=== PATIENT | male | born 1925 | race Caucasian/White ===

== ENCOUNTER 2016-09-06 22:53 | Inpatient (IN) | payer OTHER ==
--- NOTE | 2016-09-06 22:58 | PDOC ---
History of Present Illness - General History Source: EMS, Family Exam Limitations: Clinical Condition - History of Present Illness Initial Comments: 09/06/16 23:22 The patient is an 89 year old male BIBA, with a significant past medical history of hypertension, hyperlipidemia, and CVA(23 years ago), who presents to the emergency department s/p stroke earlier this afternoon. As per patients family members, the patient was last seen awake, alert, and able to ambulate normally at approximately 17:00. EMS reports the patient has a recent history of a left jugular clot removal on Friday (2 days ago), and was discharged yesterday. Family members report the patient was in the bathroom and began to feel a headache and dizziness at around 17:00. The family denies any head trauma. EMS reports the patient has experienced right sided facial drooping and generalized weakness to the lower extremities since the episode. EMS states the patients right extremities appear to be weaker than his left extremities. EMS states during the patients previous CVA 23 years ago, he did not experience any facial drooping. Family members deny the patient complained of any chest pain, palpitations, shortness of breath, or diaphoresis. The patient s history is limited due to current clinical condition. Allergies: None reported. Past Surgical History: Left Jugular clot removal (09/04/16) Social History: Non-smoker. No ETOH or drug use reported. PCP: Dr. Musa Lewis <Jez Jaramillo - Last Filed: 09/07/16 02:52> <Janet Jimenez - Last Filed: 09/08/16 06:25> - General Stated Complaint: POSSIBLE STROKE Time Seen by Provider: 09/06/16 22:57 Past History <Jez Jaramillo - Last Filed: 09/07/16 02:52> - Past Medical History HTN: Yes (patient on meds but does not know the names) Hypercholesterolemia: Yes (patient on meds but does not know the name) - Psycho/Social/Smoking Cessation Hx Suicidal Ideation: No Smoking Status: No Smoking History: Never smoked Number of Cigarettes Smoked Daily: 0 Hx Alcohol Use: No Drug/Substance Use Hx: No <Janet Jimenez - Last Filed: 09/08/16 06:25> - Past Medical History Allergies/Adverse Reactions: Allergies Allergy/AdvReac Type Severity Reaction Status Date / Time No Known Allergies Allergy Verified 09/06/16 23:06 Home Medications: Ambulatory Orders Naproxen [Naprosyn] 375 mg PO BID PRN #14 tablet 08/24/12 Unobtainable Home Med List 0 dose .ROUTE UTDICT 08/24/12 Aspirin [ASA -] 81 mg PO DAILY 09/07/16 Atorvastatin Calcium [Lipitor] 10 mg PO 09/07/16 Benazepril/Hydrochlorothiazide [Benazepril-Hctz 20-12.5 mg Tab] 1 each PO Metformin HCl [Glucophage -] 500 mg PO BID 09/07/16 Review of Systems - Review of Systems Able to Perform ROS?: Yes Comments:: 09/06/16 23:22 GENERAL/CONSTITUTIONAL: +Bilateral weakness at the extremities. No fever or chills. HEAD, EYES, EARS, NOSE AND THROAT: +Right sided facial droop. No ear pain or discharge. No sore throat. CARDIOVASCULAR: No chest pain or shortness of breath. RESPIRATORY: No cough, wheezing, or hemoptysis. GASTROINTESTINAL: No nausea, vomiting, diarrhea or constipation. GENITOURINARY: No dysuria, frequency, or change in urination. MUSCULOSKELETAL: No joint or muscle swelling or pain. No neck or back pain. SKIN: No rash NEUROLOGIC: +Headache, +dizziness, +change in strength to the lower extremities. No vertigo. ENDOCRINE: No increased thirst. No abnormal weight change. HEMATOLOGIC/LYMPHATIC: +Blood clot at left jugular vein(removed 09/04/16). No anemia, easy bleeding. ALLERGIC/IMMUNOLOGIC: No hives or skin allergy. <Jez Jaramillo - Last Filed: 09/07/16 02:52> *Physical Exam - Vital Signs Last Vital Signs Temp Pulse Resp BP Pulse Ox 98.3 F 96 H 18 194/114 97 09/06/16 22:55 09/06/16 22:55 09/06/16 22:55 09/06/16 22:55 09/06/16 22:55 - Physical Exam Comments: 09/06/16 23:24 GENERAL: Awake, alert, and fully oriented, in no acute distress. Afebrile. HEAD: No signs of trauma EYES: PERRLA, EOMI, sclera anicteric, conjunctiva clear ENT: Auricles normal inspection, hearing grossly normal, nares patent, oropharynx clear without exudates. Moist mucosa NECK: Normal ROM, supple, no lymphadenopathy, JVD, or masses LUNGS: Breath sounds equal, clear to auscultation bilaterally. No wheezes, and no crackles HEART: Regular rate and rhythm, normal S1 and S2, no murmurs, rubs or gallops ABDOMEN: Soft, nontender, normoactive bowel sounds. No guarding, no rebound. No masses EXTREMITIES: Normal range of motion, no edema. No clubbing or cyanosis. No cords, erythema, or tenderness NEUROLOGICAL: Alert, awake, appropriate. Cranial nerves 2-12 intact. Good strength in arms bilaterally. Slightly weak on the right side. Unable to lift legs bilaterally. Toes are down-going bilaterally. Reflexes are equal bilaterally and throughout. Babinski's on left was upcoming. SKIN: Warm, Dry, normal turgor, no rashes noted. Carotid artery surgery site( scar). <Jez Jaramillo - Last Filed: 09/07/16 02:52> Heart Score/ECG Review - ECG Impressions Comment:: 09/07/16 02:52 Vent. Rate: 89 bpm IMPRESSION: Normal sinus rhythm with 1st degree AV block. <Jez Jaramillo - Last Filed: 09/07/16 02:52> ED Treatment Course - LABORATORY CBC & Chemistry Diagram: 09/07/16 01:15 09/07/16 01:15 - ADDITIONAL ORDERS Additional order review: Laboratory Results 09/06/16 22:59 POC Glucometer [id number] 09/06/16 22:59 POC Glucometer [id number] - RADIOLOGY Radiograph Interpretation: 09/06/16 23:42 EXAM: Head CT INTERPRETED BY: Dr. Smart REVIEWED BY: Dr. Jimenez IMPRESSION: Acute nonhemorrhagic left cerebral infarct as discussed. - Medications Given in the ED: ED Medications Discontinued Medications Generic Name Dose Route Start Last Admin Trade Name Freq PRN Reason Stop Dose Admin Labetalol HCl 10 mg 09/06/16 23:01 09/06/16 23:21 Normodyne Injection - IVPUSH 09/06/16 23:02 10 mg ONCE ONE Administration <Jez Jaramillo - Last Filed: 09/07/16 02:52> - LABORATORY CBC & Chemistry Diagram: 09/07/16 01:15 09/07/16 01:15 <Janet Jimenez - Last Filed: 09/08/16 06:25> Medical Decision Making - Medical Decision Making 09/08/16 06:23 Pt comes in with right sided body weakness that began around 5PM. He developed a bad headache, then the headache resolved and he was left with left side wekness and facial droop. He had extraction of clot from his carotid 2 days back at [facility]. Now with CVA. Pt will be admitted to hospitalist. BP controlled. Pt hydrated and he is resting. <Janet Jimenez - Last Filed: 09/08/16 06:25> *DC/Admit/Observation/Transfer - Attestations Scribe Attestion: 09/06/16 23:24 Documentation prepared by Jez Jaramillo, acting as certified ophthalmic medical technician for Janet Jimenez MD. <Jez Jaramillo - Last Filed: 09/07/16 02:52> - Discharge Dispostion Admit: Yes <Janet Jimenez - Last Filed: 09/08/16 06:25> Diagnosis at time of Disposition: Cerebrovascular accident (CVA) - Discharge Dispostion Disposition: TRANSFER ACUTE CARE/OTHER HOSP Condition at time of disposition: Guarded - Referrals
[2016-09-06] MEDS ORDERED: LABETALOL HCL 5 MG/1 ML (100MG/20 ML VIAL) IVPUSH ONE (23:01)
--- NOTE | 2016-09-06 23:07 | PDOC ---
NIH Stroke Scale - Last Known Well Date/Time & Onset Date Last Known Well: 09/06/16 Time Last Known Well: 17:00 - Initial Evaluation Level of consciousness: Not alert, but arousable with minimal stimulation Ask patient the month and their age: Both incorrect Ask patient to open & close eyes; make fist and let go: Obeys both correctly Best gaze (horizontal eye movement): Normal Visual field testing: No visual field loss Facial paresis (Show teeth/raise eyebrows/close eyes tight): Minor paralysis ( flattened nasolabial fold, asymmetry on smiling) Motor Function: Left Arm: Normal Motor Function: Right Arm: Normal (extends arm 90 (or 45) degrees for 10 seconds without drift Motor Function: Left Leg: No effort against gravity Motor Function: Right Leg: No effort against gravity Limb Ataxia: No ataxia Sensory(Use pinprick test arms,legs,trunk,face/side to side): Normal Best language (Describe picture, name items, read sentences): Mild to moderate aphasia Dysarthria (read several words): Mild to moderate slurring of words Extinction and Inattention: No abnormality - Total Score NIH Stroke Scale Score: 12
[2016-09-06] MEDS ORDERED: LABETALOL HCL 5 MG/1 ML (200MG/40ML VIAL) IVPB ONE (23:11)
[2016-09-06] MEDS ORDERED: SODIUM CHLORIDE 0.9% 500 ML INFUS.BAG IV ONE (23:30)
[2016-09-07] MEDS ORDERED: ASPIRIN 81 MG CHEWABLE TABLETS PO ONE (00:02)
[2016-09-07] MEDS ORDERED: ASPIRIN 81 MG CHEWABLE TABLETS ONE (00:28)
[2016-09-07 01:33] LABS: BASOPHIL 0.7 % (0-2.0); EOSINOPHIL 0.1 % (0-4.5); MCH 30.4 pg (25.7-33.7); MCHC 33.5 g/dl (32.0-35.9); MEAN CELL VOLUME 90.7 fl (80-96); NEUTROPHILS 85.5 % (42.8-82.8); PLATELET COUNT 206 K/MM3 (134-434); RDW 13.1 % (11.9-15.9); WHITE BLOOD COUNT 15.7 K/mm3 (4.0-10.0)
[2016-09-07 01:56] LABS: INR 1.05 (0.82-1.09); PROTHROMBIN TIME (PATIENT) 11.6 SEC (9.98-11.88)
[2016-09-07 01:59] LABS: ALBUMIN 3.9 g/dl (3.4-5.0); ANION GAP 11 (8-16); BILIRUBIN,TOTAL 0.6 mg/dL (0.2-1.0); CALCIUM 9.1 mg/dL (8.5-10.1); CO2 28 mmol/L (21-32); CREATININE 1.1 mg/dL (0.7-1.3); GLUCOSE,RANDOM 264 mg/dL (74-106); SGOT/AST 45 U/L (15-37); SGPT/ALT 40 U/L (12-78)
[2016-09-07 02:00] LABS: ALK PHOS 120 U/L (45-117)
--- NOTE | 2016-09-07 02:45 | PN ---
<Tanya Ribeiro - Last Filed: 09/07/16 04:56> Teaching Attending Note ATTENDING PHYSICIAN STATEMENT I saw and evaluated the patient. I reviewed the resident's note and discussed the case with the resident. I agree with the resident's findings and plan as documented. SUBJECTIVE: 89 year old male who presents with right sided facial droop, generalized weakness and lower extremity weakness since this afternoon. Patient was last seen awake, alert and ambulating at 17:00. Patient has a recent history of a left jugular clot removal on Friday (2 days ago), and was discharged yesterday. As per daughter the patient started to experience left sided facial pain followed by a headache and dizziness. The family denies any head trauma. Family members deny the patient complained of any chest pain, palpitations, shortness of breath, or diaphoresis. The patients history is limited due to current clinical condition. PMH: hypertension, hyperlipidemia, and CVA(23 years ago) with mild weakness in the right limb, diabetes, dementia Past Surgical History: Left Jugular clot removal (09/04/16) FH: non contributory Social History: Non-smoker. No ETOH or drug use reported. OBJECTIVE: VS: Last Vital Signs Temp Pulse Resp BP Pulse Ox 98.5 F 85 20 181/101 97 09/07/16 02:17 09/07/16 02:17 09/07/16 02:17 09/07/16 02:17 09/07/16 02:17 GENERAL: drowsy but arrousable, disoriented HEAD: Normal with no signs of trauma. EYES: Pupils equal, round and reactive to light, extraocular movements can not checked( doesn't follow commands), sclera anicteric, conjunctiva clear. EARS, NOSE, THROAT: nares patent, oropharynx clear without exudates. Moist mucous dry. NECK: Normal range of motion, supple without lymphadenopathy, JVD, or masses. LUNGS: Breath sounds equal,coarse breathing b/l . No wheezes, and no crackles. No accessory muscle use. HEART: Regular rate and rhythm, normal S1 and S2, no murmurs, rubs or gallops, peripheral pulses normal and equal bilaterally. ABDOMEN: Soft, nontender, not distended, normoactive bowel sounds, no guarding, no rebound, no masses. UPPER EXTREMITIES: 2+ pulses, warm, well-perfused. No cyanosis. LOWER EXTREMITIES: 2+ pulses, warm, well-perfused.. No peripheral edema. NEUROLOGICAL: Cranial nerves II-XII can not checked patient doesn't follow command. power LUE 4/5, dobby looms pegger 5/5. RUE poer 3/5 dobby looms pegger 2/5. Power Left leg 4/5 right LEG 3/5 . Reflexes are equal bilaterally and throughout. Patient unable to tell fine touch in both upper and lower extremity. SKIN: Warm, dry, normal turgor Labs: CBCD WBC 15.7 K/mm3 (4.0-10.0) H 09/07/16 01:15 RBC 4.72 M/mm3 (4.00-5.60) 09/07/16 01:15 Hgb 14.3 GM/dL (11.7-16.9) 09/07/16 01:15 Hct 42.8 % (35.4-49) 09/07/16 01:15 MCV 90.7 fl (80-96) 09/07/16 01:15 MCHC 33.5 g/dl (32.0-35.9) 09/07/16 01:15 RDW 13.1 % (11.9-15.9) 09/07/16 01:15 Plt Count 206 K/MM3 (134-434) 09/07/16 01:15 MPV 10.0 fl (7.5-11.1) 09/07/16 01:15 CMP Sodium 132 mmol/L (136-145) L 09/07/16 01:15 Potassium 5.4 mmol/L (3.5-5.1) H 09/07/16 01:15 Chloride 93 mmol/L (98-107) L 09/07/16 01:15 Carbon Dioxide 28 mmol/L (21-32) 09/07/16 01:15 Anion Gap 11 (8-16) 09/07/16 01:15 BUN 25 mg/dL (7-18) H 09/07/16 01:15 Creatinine 1.1 mg/dL (0.7-1.3) 09/07/16 01:15 Creat Clearance w eGFR > 60 (>60) 09/07/16 01:15 Calcium 9.1 mg/dL (8.5-10.1) 09/07/16 01:15 Total Bilirubin 0.6 mg/dL (0.2-1.0) 09/07/16 01:15 AST 45 U/L (15-37) H 09/07/16 01:15 ALT 40 U/L (12-78) 09/07/16 01:15 Alkaline Phosphatase 120 U/L (45-117) H 09/07/16 01:15 Total Protein 8.0 g/dl (6.4-8.2) 09/07/16 01:15 Albumin 3.9 g/dl (3.4-5.0) 09/07/16 01:15 ASSESSMENT AND PLAN: CVA r/o TIA s/p carotid endarterectomy -Leukocytosis most likely stress induced -No signs of infection at surgical site -Plavix/Aspirin -MRI/MRA of neck and brain -Statin therapy -Permissive HTN -Neuro consult in am -PT consult -Speech and swallow <Sarai Handy - Last Filed: 09/07/16 20:29> Teaching Attending Note Name of Resident: Jossue Jimenes
--- NOTE | 2016-09-07 03:19 | HP ---
CHIEF COMPLAINT: cva PCP: HISTORY OF PRESENT ILLNESS: History obtained from daughter. Patient is an 89 year old male with a significant past medical history of hypertension, hyperlipidemia, and CVA(23 years ago, had mild weakness in right lower limb from previous stroke), Dementia.who presents to the emergency with a complaint of stroke. As per patients family members, the patient was last seen awake, alert, and able to ambulate normally at approximately 17:00. Patient had endartrectomy done 2 days ago and was discharged yesterday. Daughter states that patient was complaoing of pain in neck since morning but in evening he started complaining headache and weakness in b/l lower limb and right upper limb. Daughter deny the patient complained of any chest pain, palpitations, shortness of breath, or diaphoresis. Denies irregular body movement, urine incontinence, stool incontinence. Allergies: None reported. Past Surgical History: Left Jugular clot removal (09/04/16) Social History: Non-smoker. No ETOH or drug use reported. PCP: Dr. Musa Lewis ER course was notable for: (1)cbc, cmp (2)ct head (3)labetalol 10 mg PAST MEDICAL HISTORY: HTN, HLD, cva, dementia PAST SURGICAL HISTORY: endartrecomy Social History: No ETOH or drug use reported. Family History: Allergies No Known Allergies Allergy (Verified 09/06/16 23:06) HOME MEDICATIONS: Home Medications Medication Instructions Recorded Naproxen [Naprosyn] 375 mg PO BID PRN #14 tablet 08/24/12 Unobtainable Home Med List 0 dose .ROUTE UTDICT 08/24/12 Aspirin [ASA -] 81 mg PO DAILY 09/07/16 Atorvastatin Calcium [Lipitor] 10 mg PO 09/07/16 Benazepril/Hydrochlorothiazide 1 each PO 09/07/16 [Benazepril-Hctz 20-12.5 mg Tab] Metformin HCl [Glucophage -] 500 mg PO BID 09/07/16 REVIEW OF SYSTEMS : history obtained from daughter CONSTITUTIONAL: Absent: fever, chills, diaphoresis, generalized weakness, malaise, loss of appetite, weight change HEENT: Present headache Absent: rhinorrhea, nasal congestion, CARDIOVASCULAR: Absent: chest pain, syncope, palpitations, irregular heart rate, lightheadedness , peripheral edema RESPIRATORY: Absent: cough, shortness of breath, dyspnea with exertion, orthopnea, wheezing, stridor, hemoptysis GASTROINTESTINAL: Absent: abdominal pain, abdominal distension, nausea, vomiting, GENITOURINARY: Absent: dysuria, frequency, urgency, hesitancy, hem SKIN: Absent: rash, itching, pallor HEMATOLOGIC/IMMUNOLOGIC: Absent: easy bleeding, easy bruising, ENDOCRINE: Absent: unexplained weight gain, unexplained weight loss, heat intolerance, cold intolerance NEUROLOGIC: Present: headache, focal weakness or paresthesias, unsteady gait, mental status changes, PSYCHIATRIC: Absent: anxiety, depression, suicidal or homicidal ideation, hallucinations. PHYSICAL EXAMINATION GENERAL: drowsy but arrousable, disoriented HEAD: Normal with no signs of trauma. EYES: Pupils equal, round and reactive to light, extraocular movements can not checked( doesn't follow commands), sclera anicteric, conjunctiva clear. EARS, NOSE, THROAT: nares patent, oropharynx clear without exudates. Moist mucous dry. NECK: Normal range of motion, supple without lymphadenopathy, JVD, or masses. LUNGS: Breath sounds equal,coarse breathing b/l . No wheezes, and no crackles. No accessory muscle use. HEART:s1s2 normal ABDOMEN: Soft, nontender, not distended, normoactive bowel sounds, no guarding, no rebound, no masses. UPPER EXTREMITIES: 2+ pulses, warm, well-perfused. No cyanosis. LOWER EXTREMITIES: 2+ pulses, warm, well-perfused.. No peripheral edema. NEUROLOGICAL: Cranial nerves II-XII can not checked patient doesn't follow command. power LUE 4/5, board certified family physician 5/5. RUE poer 3/5 board certified family physician 2/5. Power Left leg 4/5 right LEG 3/5 . Reflexes are equal bilaterally and throughout. Patient unable to tell fine touch in both upper and lower extremity. SKIN: Warm, dry, normal turgor, Current Medications Generic Name Dose Route Start Last Admin Trade Name Freq PRN Reason Stop Dose Admin Atorvastatin Calcium 40 mg 09/07/16 10:00 Lipitor - PO DAILY [facility] Clopidogrel Bisulfate 300 mg 09/07/16 03:34 Plavix - PO 09/07/16 03:35 ONCE ONE Clopidogrel Bisulfate 75 mg 09/07/16 10:00 Plavix - PO DAILY [facility] Heparin Sodium (Porcine) 5,000 unit 09/07/16 10:00 Heparin - SQ Q8H-IV [facility] Insulin Aspart 1 vial 09/07/16 07:00 Novolog Vial Sliding Scale - SQ ACHS [facility] Protocol Metoprolol Tartrate 5 mg 09/07/16 03:28 Lopressor Injection - IVPUSH Q4H PRN HYPERTENSION Non-Formulary Medication 1 each 09/07/16 10:00 Benazepril/Hydrochlorothiazide [Benazepril-Hctz 20-12.5 Mg Tab] PO DAILY [facility] CT head : Clinical information: right-sided weakness Focal edema is seen within the left inferior basal ganglia including the internal capsule and also the left parahippocampal gyrus ventrally most likely on the basis of acute nonhemorrhagic infarction. There is mild extrinsic indentation upon the third ventricle. There is no extra-axial fluid collection. No obstructive hydrocephalus. Impression: Acute nonhemorrhagic left cerebral infarct as discussed. ASSESSMENT/PLAN: The patient is an 89 year old male with a significant past medical history of hypertension, hyperlipidemia, and CVA(23 years ago, had mild weakness in right lower limb from previous stroke), Dementia.who ws brought to the emergency with a complaint of stroke CVA CT head left cerebral infarct recieved 162 mg of aspirin and 300mg clopidogril on aspirin 81 and plavix 75 follow MR I and MRA brain and neck, carotid doppler, ECHO, Follow lipid profile fall precaution speech and swallow evaluation started on atorvastatin 40mg Neurology consult HTN emergency recieved labetalol 10mgIV in ED started on home med Started on IV metoprolol ( to be given is SBP> 190, DBP>100) monitor vitals HLD follow lipid profile started on atorvastatin 40mg DM monitor Blood sugar Follow Hba1c on sliding scale Dementia Hold rivastigmine 3mg daily Patient NPO Hyperkalemia K 5.4 monitor potassium Hyponatremia Na 132, corrected 136 nutrition: NPO for now, follow speech and swallow elctrolyte: Repeat in am DVT pro : on sq heparin GI pro : IV protonix Follow cxr Dispo ; admitted in tele Visit type - Emergency Visit Emergency Visit: Yes ED Registration Date: 09/07/16 Care time: The patient presented to the Emergency Department on the above date and was hospitalized for further evaluation of their emergent condition. - New Patient This patient is new to me today: Yes Date on this admission: 09/07/16 - Critical Care Critical Care patient: No
[2016-09-07] MEDS ORDERED: METOPROLOL TARTRATE 5 MG/5 ML VIAL IVPUSH PRN (03:28)
[2016-09-07] MEDS ORDERED: CLOPIDOGREL BISULFATE 300 MG TABLET PO ONE (03:34)
[2016-09-07] MEDS ORDERED: HEPARIN NA (PORCINE) 5,000 UNITS/ML 1ML VIAL SQ SCH (06:00)
[2016-09-07] MEDS ORDERED: INSULIN SLIDING SCALE (NOVOLOG) 1 VIAL SQ SCH (07:00)
[2016-09-07] MEDS ORDERED: PANTOPRAZOLE SODIUM 40MG/100 ML IVPB SCH (10:00)
[2016-09-07] MEDS ORDERED: LABETALOL HCL 200 MG TABLET (FP) PO SCH (10:00)
[2016-09-07] MEDS ORDERED: ATORVASTATIN CA 40 MG TABLET (FP) PO SCH (10:00)
[2016-09-07] MEDS ORDERED: ASPIRIN 81 MG CHEWABLE TABLETS PO SCH (10:00)
[2016-09-07] MEDS ORDERED: CLOPIDOGREL BISULFATE 75 MG TABLET (FP) PO SCH (10:00)
[2016-09-07] MEDS ORDERED: LISINOPRIL 20 MG TABLET (FP) PO SCH (10:45)
[2016-09-07] MEDS ORDERED: HYDROCHLOROTHIAZIDE 12.5 MG CAPSULE (FP) PO SCH (10:45)
[2016-09-07 12:00] VITALS: BMI 24.3
--- NOTE | 2016-09-07 13:14 | CONSULT ---
Consult - History of Present Illness History of Present Illness: 89 yo post op left sided endarterectomy on 09/04/15 per family complained of a severe headache around 6pm and was noted to have right lower leg weakness that progressed to involve the arm. He was evaluated in the ED at 10pm. CT revealing extensive infarction of the left temporal lobe into the basal ganglia. - History Source History Provided By: Family Member, Medical Record - Alcohol/Substance Use Hx Alcohol Use: No - Smoking History Smoking history: Never smoked Have you smoked in the past 12 months: No Aproximately how many cigarettes per day: 0 Home Medications - Allergies Allergies/Adverse Reactions: Allergies Allergy/AdvReac Type Severity Reaction Status Date / Time No Known Allergies Allergy Verified 09/06/16 23:06 - Home Medications Home Medications: Ambulatory Orders Naproxen [Naprosyn] 375 mg PO BID PRN #14 tablet 08/24/12 Unobtainable Home Med List 0 dose .ROUTE UTDICT 08/24/12 Aspirin [ASA -] 81 mg PO DAILY 09/07/16 Atorvastatin Calcium [Lipitor] 10 mg PO 09/07/16 Benazepril/Hydrochlorothiazide [Benazepril-Hctz 20-12.5 mg Tab] 1 each PO Metformin HCl [Glucophage -] 500 mg PO BID 09/07/16 Physical Exam Vital Signs: Vital Signs Temperature 98.7 F 09/07/16 11:32 Pulse Rate 82 09/07/16 11:32 Respiratory Rate 22 09/07/16 11:32 Blood Pressure 181/96 09/07/16 11:32 O2 Sat by Pulse Oximetry (%) 96 09/07/16 11:32 Constitutional: Yes: Calm, Anxious Eyes: Yes: EOM Intact, PERRL. No: Ptosis Neurological: Yes: Alert, Oriented, Aphasia (expressive aphasia with dense right sided flacid hemiplegia arm=leg>face. 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 Informed ED physician and Hospitalist As directed by hospitalist attempted to discuss case with marketing sales consultant neurology at [facility] but the physician was unavailable so left my direct number for transfer center to have the neurologist call urgently.
--- NOTE | 2016-09-07 13:16 | EKG ---
Test Reason : Blood Pressure : / mmHG Vent. Rate : 089 BPM Atrial Rate : 089 BPM P-R Int : 230 ms QRS Dur : 092 ms QT Int : 380 ms P-R-T Axes : 012 043 091 degrees QTc Int : 462 ms SINUS RHYTHM WITH 1ST DEGREE A-V BLOCK MINIMAL VOLTAGE CRITERIA FOR LVH, MAY BE NORMAL VARIANT NONSPECIFIC ST ABNORMALITY Confirmed by DEVORAH MARTINEZ MD ([id number]) on 09/07/2016 1:15:46 PM Referred By: Confirmed By:DEVORAH MARTINEZ MD
--- NOTE | 2016-09-07 16:21 | HOSP ---
Subjective - Review of Symptoms Subjective: agree with neurology that pt would benefit from closer monitoring and possible neurointervention for massive L sided stroke. Transfer approved by Dr Dotson spoke with Dr Bourgeois, neurology resident at [facility]. case presented and accepted to neuro ICU by attending Dr Anguiano. informed family, present at bedside, that pt was accepted and is awaiting transfer. answered all questions, verbalized agreement with plan will hold all oral medications. start low dose D5w as pt remains NPO and is aspiration risk. Physical Examination Vital Signs: Vital Signs Temperature 98.7 F 09/07/16 11:32 Pulse Rate 82 09/07/16 11:32 Respiratory Rate 22 09/07/16 11:32 Blood Pressure 181/96 09/07/16 11:32 O2 Sat by Pulse Oximetry (%) 96 09/07/16 11:32
[2016-09-07] MEDS ORDERED: DEXTROSE 5%-WATER - 1,000 ML IV SCH (16:30)
--- NOTE | 2016-09-07 18:51 | PN ---
Progress Note (short form) - Note Progress Note: Addendum was able to make contact with Dr Castro @ [facility] who accepted the patient pending ICU bed availability. Later was informed bed not available, however hospitalist was able to arrange transfer to [facility]. Appreciate the [facility] and [facility] for the their assistance with the transfer.
[2016-09-07 19:17] VITALS: BP 167/82; PULSE 85; TEMP 98.3
--- NOTE | 2016-09-08 07:42 | DS ---
Physical Exam: SUBJECTIVE: Patient seen and examined. dysarthric with expressive aphasia. resting comfortable OBJECTIVE: Vital Signs Period Temp Pulse Resp BP Sys/Mtz Pulse Ox Last 24 Hr 98.3 F-98.7 F 82-86 18-22 167-181/80-96 96-100 PHYSICAL EXAM GENERAL: The patient is awake, alert, and fully oriented, in no acute distress. HEAD: Normal with no signs of trauma. EYES: PERRL, extraocular movements intact, sclera anicteric, conjunctiva clear. ENT: Ears normal, nares patent, oropharynx clear without exudates, moist mucous membranes. NECK: Trachea midline, full range of motion, supple. LUNGS: Breath sounds equal, clear to auscultation bilaterally, no wheezes, no crackles, no accessory muscle use. HEART: Regular rate and rhythm, S1, S2 without murmur, rub or gallop. ABDOMEN: Soft, nontender, nondistended, normoactive bowel sounds, no guarding, no rebound, no hepatosplenomegaly, no masses. EXTREMITIES: 2+ pulses, warm, well-perfused, no edema. NEUROLOGICAL: dysarthric, not following all commands. left lateral eye deviation , strength 2/5 RUE 1/5 RLE with upgoing planters, 3/5 LLE/LUE. PSYCH: Normal mood, normal affect. SKIN: Warm, dry, normal turgor, no rashes or lesions noted. LABS Laboratory Results - last 24 hr 09/07/16 16:19 POC Glucometer [id number] HOSPITAL COURSE: Date of Admission:09/07/16 Date of Discharge: 09/07/16 Admitting Diagnosis: Acute L cerebral CVA, HTN emergency Pre hospital course 89 year old male with a significant past medical history of hypertension, hyperlipidemia, and CVA(23 years ago, had mild weakness in right lower limb from previous stroke), Dementia.who presents to the emergency with a complaint of stroke. As per patients family members, the patient was last seen awake, alert, and able to ambulate normally at approximately 17:00. Patient had endartrectomy done 2 days ago and was discharged yesterday. Daughter states that patient was complaoing of pain in neck since morning but in evening he started complaining headache and weakness in b/l lower limb and right upper limb. Daughter deny the patient complained of any chest pain, palpitations, shortness of breath, or diaphoresis. Denies irregular body movement, urine incontinence, stool incontinence. Subsequent hospital course stroke code protocol initiated on arrival. NIHSS 12. CT showed L cerebral infarct, given asa/plavix. given labetolol IVP for HTN emergency. metoprolol prn with allowance for permissive HTN. case d/w neuro. due to the size of the CVA (entire L temporal lobe into the basal ganglia) and surrounding edema that can likely progress and lead to herniation the pt would benefit from transfer to tertiary care center. [facility] accepted however had no Neuro ICU beds available. pt accepted to [facility] by Dr. Anguiano. notified family present at bedside. answered all questions. verbalized understanding and agreed with transfer. Minutes to complete discharge: 45 Discharge Summary Reason For Visit: CEREBROVASCULAR ACCIDENT (CVA) Current Active Problems Cerebrovascular accident (CVA) (Acute) Condition: Guarded - Instructions Referrals: Musa Lewis MD [Primary Care Provider] - - Home Medications Comprehensive Discharge Medication List: Ambulatory Orders Naproxen [Naprosyn] 375 mg PO BID PRN #14 tablet 08/24/12 Unobtainable Home Med List 0 dose .ROUTE UTDICT 08/24/12 Aspirin [ASA -] 81 mg PO DAILY 09/07/16 Atorvastatin Calcium [Lipitor] 10 mg PO 09/07/16 Benazepril/Hydrochlorothiazide [Benazepril-Hctz 20-12.5 mg Tab] 1 each PO Metformin HCl [Glucophage -] 500 mg PO BID 09/07/16 This patient is new to me today: Yes Date on this admission: 09/07/16 Emergency Visit: Yes ED Registration Date: 09/07/16 Care time: The patient presented to the Emergency Department on the above date and was hospitalized for further evaluation of their emergent condition. Critical Care patient: Yes Total Critical Care Time (in minutes): 35 Critical Care Statement: The care of this patient involved high complexity decision making to prevent further life threatening deterioration of the patient 's condition and/or to evalute & treat vital organ system(s) failure or risk of failure. - Discharge Referral Referred to [facility] Med [facility] Yes Physician Referral: Musa Mcgill MD ([facility])
== END 2016-09-07 19:17 | disposition short-term general hospital (02) | DRG 65 ==
LOC: JER 22:53 → JERBED 09-07 02:53 → UNDOADMIN 09-07 02:57 → JERBED 09-07 02:57
PROVIDERS: ADMIT Internal Medicine; ATTEND Internal Medicine
PROC: 3E033GC Introduction of Other Therapeutic Substance into Peripheral Vein, Percutaneous Approach (ICD-10-PCS; principal; 2016-09-07)
DX: I63.9 Cerebral infarction, unspecified (principal); G81.94 Hemiplegia, unspecified affecting left nondominant side; E87.1 Hypo-osmolality and hyponatremia; R29.810 Facial weakness; R29.712 NIHSS score 12; Z86.73 Personal history of transient ischemic attack (TIA), and cerebral infarction without residual deficits; E78.5 Hyperlipidemia, unspecified; F03.90 Unspecified dementia, unspecified severity, without behavioral disturbance, psychotic disturbance, mood disturbance, and anxiety; E87.5 Hyperkalemia; Z98.890 Other specified postprocedural states; I16.0 Hypertensive urgency
CPT/HCPCS: 36415; 70450-TC; 71010-TC; 80053; 85025; 85610; 85730; 87040; 93005; 93010; 93880-TC; 99285-25